=== PATIENT | female | born 1970 | race Caucasian/White ===

== ENCOUNTER 2017-12-05 10:21 | Emergency (ER) | payer SELFPAY ==
[2017-12-05] MEDS: LIDOCAINE 1% (MDV) 10 ML INJ INFIL (11:17)
== END 2017-12-05 12:11 | disposition home or self-care (01) ==
LOC: FTE 10:21
DX: K12.2 Cellulitis and abscess of mouth (principal); E11.9 Type 2 diabetes mellitus without complications
CPT/HCPCS: 10061; 99283-25

== ENCOUNTER 2017-12-07 14:25 | Emergency (ER) | payer OTHER | END 2017-12-07 15:03 | disposition home or self-care (01) | LOC: FTE 14:25 | DX: Z48.01 Encounter for change or removal of surgical wound dressing (principal); E11.9 Type 2 diabetes mellitus without complications | CPT/HCPCS: 99281; Z7502 ==